=== PATIENT | male | born 1960 | race Asian ===

== ENCOUNTER 2017-09-29 09:23 | Emergency (ER) | payer OTHER ==
[~2017-09-29] VITALS: Ht 165.1 cm; Wt 70.0 kg
[2017-09-29 09:32] VITALS: BP 133/76; PULSE 58; RESP 20; TEMP 97.9; O2SAT 100
[2017-09-29] MEDS ORDERED: SODIUM CHLORIDE 0.9% FLUSH 10 ML FLUSH IVF PRN (10:00)
[2017-09-29] MEDS ORDERED: SODIUM CHLORID 0.9% 500 ML INJ 500 ML IV ONE (10:00)
[2017-09-29] MEDS ORDERED: ONDANSETRON ODT 4 MG TAB PO ONE (10:00)
[2017-09-29] MEDS ORDERED: MECLIZINE HCL 25 MG TAB PO ONE (10:00)
[2017-09-29 10:01] VITALS: O2SAT 99
--- NOTE | 2017-09-29 10:02 | PD ---
HPI Chief Complaint: Dizziness Time Seen by Provider: 09:43 Travel History International Travel<30 days: No Contact w/Intl Traveler<30days: No Traveled to known affect area: No History of Present Illness HPI 57-year-old male came to the emergency room with history of sudden onset intense dizziness at around 7 AM. Patient says he woke up earlier and got up and made coffee for himself like he usually does. He said down to drink the coffee when he suddenly got extremely dizzy and nauseous. He said that it felt like the room was spinning. Since then he has vomited several times. He continues to be dizzy and nauseous still. This has never happened to him before. No history of fall or syncopal episode. No history of chest pain or headache. He says any change in position of movement makes the dizziness worse. He came here by himself along with his family member. He says he is otherwise healthy and does not take any medications. He appears to be in moderate distress. Patient denies of any unilateral weakness or speech issues. No history of tinnitus or deafness. [facility] Past Medical History Narrative Medical List of his past medical, surgical, social and family history reviewed from the nursing note Medical History: Denies Significant Hx Past Surgical History Surgical History: No Previous Surgery Social History Alcohol Use: Yes (occasional) Tobacco Use: Yes (2-3 cigs day) Substance Use: No Allergies-Medications (Allergen,Severity, Reaction): Coded Allergies: No Known Allergies (Verified Adverse Reaction, Unknown, 09/29/17) Comments No known drug allergies. Reported Meds & Prescriptions Reported Meds & Active Scripts Active Zofran Odt (Ondansetron Odt) 4 Mg Tab 4 Mg SL Q6HR PRN Meclizine (Meclizine HCl) 25 Mg Tab 25 Mg PO TID PRN 5 Days Narrative Medication List of his home medications reviewed from the nursing Review of Systems Except as stated in HPI: all other systems reviewed are Neg Gastrointestinal: Positive: Nausea Neurologic: Positive: Dizziness Physical Exam Narrative GENERAL: Awake, alert, moderate distress SKIN: Focused skin assessment warm/dry. HEAD: Atraumatic. Normocephalic. EYES: Pupils equal and round. No scleral icterus. No injection or drainage. No nystagmus ENT: No nasal bleeding or discharge. Mucous membranes pink and moist. NECK: Trachea midline. No JVD. CARDIOVASCULAR: Regular rate and rhythm. No murmur appreciated. RESPIRATORY: No accessory muscle use. Clear to auscultation. Breath sounds equal bilaterally. GASTROINTESTINAL: Abdomen soft, non-tender, nondistended. Hepatic and splenic margins not palpable. MUSCULOSKELETAL: No obvious deformities. No clubbing. No cyanosis. No edema. NEUROLOGICAL: Awake and alert. No obvious cranial nerve deficits. Motor grossly within normal limits. Normal speech. Finger-nose test and jeff ankle test for checking coordination was within normal limit. PSYCHIATRIC: Appropriate mood and affect; insight and judgment normal. Data Data Last Documented VS Orders Orders Electrocardiogram (09/29/17 09:55) Prothrombin Time / Inr (Pt) (09/29/17 09:55) Complete Blood Count With Diff (09/29/17 09:55) Basic Metabolic Panel (Bmp) (09/29/17 09:55) Troponin I (09/29/17 09:55) Ct Brain W/O Iv Contrast(Rout) (09/29/17 09:55) Chest, Single Ap (09/29/17 09:55) Ecg Monitoring (09/29/17 09:55) Iv Access Insert/Monitor (09/29/17 09:55) Oximetry (09/29/17 09:55) Sodium Chloride 0.9% Flush (Ns Flush) (09/29/17 10:00) Sodium Chlorid 0.9% 500 Ml Inj (Ns 500 M (09/29/17 10:00) Meclizine (Antivert) (09/29/17 10:00) Ondansetron Odt (Zofran Odt) (09/29/17 10:00) Mra Brain W/O Contrast (Cow) (09/29/17 ) Mri Brain W/O Contrast (09/29/17 ) Ed Discharge Order (09/29/17 13:04) Labs Laboratory Tests Test 09/29/17 10:12 White Blood Count 8.9 TH/MM3 Red Blood Count 4.70 MIL/MM3 Hemoglobin 14.8 GM/DL Hematocrit 43.5 % Mean Corpuscular Volume 92.7 FL Mean Corpuscular Hemoglobin 31.5 PG Mean Corpuscular Hemoglobin Concent 34.0 % Red Cell Distribution Width 14.7 % Platelet Count 183 TH/MM3 Mean Platelet Volume 8.3 FL Neutrophils (%) (Auto) 73.5 % Lymphocytes (%) (Auto) 14.7 % Monocytes (%) (Auto) 8.0 % Eosinophils (%) (Auto) 3.3 % Basophils (%) (Auto) 0.5 % Neutrophils # (Auto) 6.5 TH/MM3 Lymphocytes # (Auto) 1.3 TH/MM3 Monocytes # (Auto) 0.7 TH/MM3 Eosinophils # (Auto) 0.3 TH/MM3 Basophils # (Auto) 0.0 TH/MM3 CBC Comment DIFF FINAL Differential Comment Prothrombin Time 10.2 SEC Prothromb Time International Ratio 1.0 RATIO Blood Urea Nitrogen 21 MG/DL Creatinine 1.05 MG/DL Random Glucose 106 MG/DL Calcium Level 9.0 MG/DL Sodium Level 139 MEQ/L Potassium Level 4.3 MEQ/L Chloride Level 108 MEQ/L Carbon Dioxide Level 23.9 MEQ/L Anion Gap 7 MEQ/L Estimat Glomerular Filtration Rate 73 ML/MIN Troponin I LESS THAN 0.02 NG/ML MDM Medical Decision Making Medical Screen Exam Complete: Yes Emergency Medical Condition: Yes Medical Record Reviewed: Yes Interpretation(s) Last Impressions Head CT 09/29/17954 Signed Impressions: CONCLUSION: 1. No acute intracranial abnormality is identified. 2. Mucoperiosteal thickening is present within the ethmoid sinus. Chest X-Ray 09/29/17954 Signed Impressions: CONCLUSION: No acute cardiopulmonary abnormality is identified. Head Magnetic Resonance Angiography 09/29/17 Signed Impressions: CONCLUSION: Negative MRA Cow ([place] [facility] [place]) non contrast. Brain MRI 09/29/17 Signed Impressions: CONCLUSION: 1. Multiple small foci of signal abnormality is seen in the cerebral white mat ter concerning for areas of focal demyelination. These are nonspecific. It coul d be secondary to small vessel ischemic change versus underlying demyelinating conditions. 2. No acute areas of hemorrhage or mass effect are seen. 3. Sinus disease. Differential Diagnosis Vertigo, CVA, dizziness Narrative Course 10:02 AM patient was given meclizine and Zofran ODT. He is getting 500 cc fluid bolus. Awaiting for blood test and CAT scan to be done and resulted. My plan is if the CT is negative I would order an MRI. 11:16 AM all the blood test results and CAT scan came back to be within normal limit. I have ordered MRI and MRA of the brain. Awaiting for the test to be done and resulted. 1:02 PM MRI and MRA does not show any acute lesions. There are multiple small foci of demyelinating lesions. Patient is to follow-up with his primary care. I am ready to discharge him home. Procedures Procedure Narrative Twelve-lead EKG was reviewed by me. Normal sinus rhythm, normal axis, nonspecific ST-T wave changes, bradycardia. Heart rate of 51 bpm EKG Prior to Arrival: No Diagnosis Primary Impression: Dizziness Additional Impression: Vertigo Additional Instructions: Take the medication as per the prescription direction. Return to the ER if condition worsens any other new concerns. Otherwise follow-up with your primary care. Do not drive until the symptoms have completely gone away and/or you get clearance from your primary care. Med/Other Pt SpecificInfo: Prescription(s) given Scripts Ondansetron Odt (Zofran Odt) 4 Mg Tab 4 MG SL Q6HR Y for Nausea/Vomiting, #15 TAB 0 Refills Prov: Franck Carrasquillo MD 09/29/17 Meclizine (Meclizine) 25 Mg Tab 25 MG PO TID Y for VERTIGO for 5 Days, TAB 0 Refills Prov: Franck Carrasquillo MD 09/29/17 Disposition: 01 DISCHARGE HOME Condition: Stable Franck Carrasquillo MD Sep 29, 2017 10:02
[2017-09-29 10:24] LABS: AUTOMATED NEUTROPHIL # 6.5 TH/MM3 (1.8-7.7); BASOPHIL % 0.5 % (0.0-2.0); EOSINOPHIL # 0.3 TH/MM3 (0-0.4); EOSINOPHIL % 3.3 % (0.0-4.0); HEMATOCRIT 43.5 % (39.0-51.0); HEMOGLOBIN 14.8 GM/DL (13.0-17.0); LYMPH % 14.7 % (9.0-44.0); LYMPHOCYTE # 1.3 TH/MM3 (1.0-4.8); MEAN CELL VOLUME 92.7 FL (80.0-100.0); MEAN CORPUSCULAR HEMOGLOBIN 31.5 PG (27.0-34.0); MEAN PLATELET VOLUME 8.3 FL (7.0-11.0); MONOCYTE # 0.7 TH/MM3 (0-0.9); NEUT % 73.5 % (16.0-70.0); PLATELET COUNT 183 TH/MM3 (150-450); RED CELL DISTRIBUTION WIDTH 14.7 % (11.6-17.2); WHITE BLOOD COUNT 8.9 TH/MM3 (4.0-11.0)
[2017-09-29 10:31] LABS: PROTHROMBIN TIME - PATIENT 10.2 SEC (9.8-11.6)
[2017-09-29 10:40] LABS: BICARBONATE 23.9 MEQ/L (21.0-32.0); BLOOD UREA NITROGEN 21 MG/DL (7-18); CHLORIDE 108 MEQ/L (98-107); CREATININE 1.05 MG/DL (0.60-1.30); GLOMERULAR FILTRATION RATE 73 ML/MIN (>89); GLUCOSE,RANDOM 106 MG/DL (74-106); SODIUM (NA) 139 MEQ/L (136-145)
--- NOTE | 2017-09-29 10:40 | RADRPT ---
EXAM DATE: 09/29/2017 10:31 AM EDT AGE/SEX: 57 years / Male INDICATIONS: Vomiting and dizzy today CLINICAL DATA: This is the patient's initial encounter. Patient reports that signs and symptoms have been present for 1 day and indicates a pain score of Nonresponsive. MEDICAL/SURGICAL HISTORY: None. None. COMPARISON: No prior [place] exams available for comparison. FINDINGS: Portable AP view of the chest demonstrates a normal-sized cardiac silhouette. The lungs demonstrate n o definite effusion, consolidation, or pneumothorax. The bones and soft tissues demonstrate no acute finding. EKG lines overlie the patient. CONCLUSION: No acute cardiopulmonary abnormality is identified. Electronically signed by: Wes King MD 09/29/2017 10:39 AM EDT
[2017-09-29 10:42] LABS: TROPONIN I LESS THAN 0.02 NG/ML (0.02-0.05)
--- NOTE | 2017-09-29 10:43 | RADRPT ---
EXAM DATE: 09/29/2017 10:35 AM EDT AGE/SEX: 57 years / Male INDICATIONS: Dizziness and vomiting since this morning. CLINICAL DATA: This is the patient's initial encounter. Patient reports that signs and symptoms have been present for 1 day and indicates a pain score of 0/10. MEDICAL/SURGICAL HISTORY: None. None. RADIATION DOSE: 37.69 CTDI (mGy) COMPARISON: No prior [facility] exams available for comparison. TECHNIQUE: CT of the head without contrast. Using automated exposure control and adjustment of the mA and/or kV according to patient size, radiation dose was kept as low as reasonably achievable to ob tain optimal diagnostic quality images. FINDINGS: Cerebrum: The ventricles are normal. Liver, coronary disc space and there are no No midline shift, m ass lesion, hemorrhage or acute infarction. No extraaxial fluid collections are seen. Posterior Fossa: The cerebellum and brainstem demonstrate no acute abnormality. The 4th ventricle is midline. The cerebellopontine angle is within normal limits. Extracranial: There is mild mucoperiosteal thickening in the ethmoid sinuses. Remaining paranasal si nuses and mastoid air cells are clear. Skull: The calvaria is intact. No skull fracture. CONCLUSION: 1. No acute intracranial abnormality is identified. 2. Mucoperiosteal thickening is present within the ethmoid sinus. Electronically signed by: Wes King MD 09/29/2017 10:42 AM EDT
--- NOTE | 2017-09-29 12:55 | RADRPT ---
EXAM DATE: 09/29/2017 12:49 PM EDT AGE/SEX: 57 years / Male INDICATIONS: Dizziness. CLINICAL DATA: This is the patient's initial encounter. Patient reports that signs and symptoms have been present for 1 day and indicates a pain score of 0/10. MEDICAL/SURGICAL HISTORY: None. Carpal tunnel syndrome. COMPARISON: No prior exams available for comparison. TECHNIQUE: Multiplanar, multisequence examination of the brain was performed without contrast. FINDINGS: Cerebrum: The ventricles are normal for age. No evidence of midline shift, mass lesion, hemorrhage or acute infarction. No extraaxial fluid collections are seen. The pituitary gland and suprasellar cistern are normal in configuration. White Matter: There are multiple small foci of increased signal seen in the frontal white matter. Th ere are fewer small focal areas of signal are not seen in the parietal white matter. These all appear to measure less than 5 mm. Posterior Fossa: The cerebellum and brainstem are intact. The 4th ventricle is midline. The cerebel lopontine angle is unremarkable. The cerebellar tonsils are normal in position. Diffusion Imaging: No focal areas of restricted diffusion are seen. No evidence of acute infarction . Extracranial: The visualized portions of the orbits are unremarkable. There is mucosal thickening at the ethmoid sinuses. There is mucosal thickening of the right maxillary sinus. CONCLUSION: 1. Multiple small foci of signal abnormality is seen in the cerebral white matter concerning for are as of focal demyelination. These are nonspecific. It could be secondary to small vessel ischemic garcia ge versus underlying demyelinating conditions. 2. No acute areas of hemorrhage or mass effect are seen. 3. Sinus disease. Electronically signed by: Wes Szymanski MD 09/29/2017 12:53 PM EDT
--- NOTE | 2017-09-29 12:56 | RADRPT ---
EXAM DATE: 09/29/2017 12:47 PM EDT AGE/SEX: 57 years / Male INDICATIONS: . Dizziness. CLINICAL DATA: This is the patient's initial encounter. Patient reports that signs and symptoms have been present for 1 day and indicates a pain score of 0/10. MEDICAL/SURGICAL HISTORY: None. Carpal tunnel syndrome. COMPARISON: No prior [place] exams available for comparison. TECHNIQUE: 3D [id number] MRA was performed. Source images, multiplanar STS MIP, and 3D volum e MIP reconstructions were reviewed. FINDINGS: There is excellent visualization of the major intracranial arteries out to the second-order branch ve ssels. There is no evidence for aneurysm, vessel truncation or stenosis, and no evidence for vascula r malformation. CONCLUSION: Negative MRA Cow ([place] [facility] [place]) non contrast. Electronically signed by: Wes Cevallos MD 09/29/2017 12:54 PM EDT
[2017-09-29] MEDS ORDERED: ZOFR4TAB3 SL (13:03)
[2017-09-29] MEDS ORDERED: MECL-62 PO (13:03)
--- NOTE | 2017-09-29 18:18 | EKG ---
Date Performed: 09/29/2017 Time Performed: 10:07:01 PTAGE: 57 years EKG: SINUS BRADYCARDIA BORDERLINE ECG NO PREVIOUS TRACING DOCTOR: Cassie Cage Interpretating Date/Time 09/29/2017 18:17:43
== END 2017-09-29 13:28 | disposition home or self-care (01) ==
LOC: NEPD 09:23
DX: R42 Dizziness and giddiness (principal); R11.2 Nausea with vomiting, unspecified; F17.210 Nicotine dependence, cigarettes, uncomplicated
CPT/HCPCS: 70450; 70544; 70551; 71045; 80048; 84484; 85025; 85610; 93005; 96360; 99285; J7040